=== PATIENT | female | born 1990 | race Caucasian/White ===

== ENCOUNTER 2021-08-29 08:51 | Emergency (ER) | payer BC ==
[2021-08-29 09:26] VITALS: BP 140/90; PULSE 92
== END 2021-08-29 09:34 | disposition home or self-care (01) ==
LOC: MW.ED 08:51
DX: Z00.00 Encounter for general adult medical examination without abnormal findings (principal); Z88.2 Allergy status to sulfonamides
CPT/HCPCS: 99282

== ENCOUNTER 2021-11-06 11:16 | Emergency (ER) | payer BC ==
[2021-11-06 11:34] VITALS: BP 132/74; PULSE 67
[2021-11-06] MEDS ORDERED: Cephalexin 500 MG Cap PO ONE (11:36)
== END 2021-11-06 11:55 | disposition home or self-care (01) ==
LOC: MW.ED 11:16
DX: S61.214A Laceration without foreign body of right ring finger without damage to nail, initial encounter (principal); Z88.2 Allergy status to sulfonamides; W26.8XXA Contact with other sharp object(s), not elsewhere classified, initial encounter
CPT/HCPCS: 99282; A9270

== ENCOUNTER 2022-09-21 06:57 | Emergency (ER) | payer BC ==
[2022-09-21 07:46] VITALS: BP 116/75; PULSE 74
== END 2022-09-21 08:03 | disposition home or self-care (01) ==
LOC: MW.ED 06:57
DX: Z76.0 Encounter for issue of repeat prescription (principal); F17.210 Nicotine dependence, cigarettes, uncomplicated; Z88.2 Allergy status to sulfonamides
CPT/HCPCS: 99281; 99282

== ENCOUNTER 2022-10-28 14:33 | Emergency (ER) | payer BC, MEDICAID ==
[2022-10-28 15:14] VITALS: BP 125/85; PULSE 80
== END 2022-10-28 15:10 | disposition home or self-care (01) ==
LOC: MW.ED 14:33
DX: Z76.0 Encounter for issue of repeat prescription (principal); Z79.899 Other long term (current) drug therapy; Z88.2 Allergy status to sulfonamides
CPT/HCPCS: 99283

== ENCOUNTER 2022-12-01 05:38 | Emergency (ER) | payer MEDICAID ==
[2022-12-01 06:40] VITALS: BP 130/72; PULSE 75
== END 2022-12-01 06:39 | disposition home or self-care (01) ==
LOC: MW.ED 05:38
DX: F32.A Depression, unspecified (principal); Z76.0 Encounter for issue of repeat prescription; Z88.2 Allergy status to sulfonamides
CPT/HCPCS: 99281; 99283

== ENCOUNTER 2023-01-04 01:03 | Emergency (ER) | payer MEDICAID ==
[2023-01-04] MEDS ORDERED: Venlafaxine 37.5 MG Tab PO STA (02:04)
[2023-01-04 02:40] VITALS: BP 140/83; PULSE 83
== END 2023-01-04 02:39 ==
LOC: MW.ED 01:03
DX: Z02.89 Encounter for other administrative examinations (principal); Z88.2 Allergy status to sulfonamides
CPT/HCPCS: 99282; A9270; 99283

== ENCOUNTER 2023-02-10 16:02 | Emergency (ER) | payer MEDICAID ==
[2023-02-10 16:28] VITALS: BP 147/95; PULSE 104
== END 2023-02-10 16:41 | disposition home or self-care (01) ==
LOC: MW.ED 16:02
DX: Z76.0 Encounter for issue of repeat prescription (principal); Z88.2 Allergy status to sulfonamides
CPT/HCPCS: 99281; 99283

== ENCOUNTER 2023-04-14 21:58 | Emergency (ER) | payer MEDICAID ==
[2023-04-14 23:06] VITALS: BP 123/76; PULSE 97
[2023-04-14] MEDS ORDERED: Venlafaxine 37.5 MG Tab PO STA (23:10)
== END 2023-04-14 23:28 | disposition home or self-care (01) ==
LOC: MW.ED 21:58
DX: Z76.0 Encounter for issue of repeat prescription (principal)
CPT/HCPCS: 99281; A9270; 99283

== ENCOUNTER 2023-07-05 02:13 | Emergency (ER) | payer MEDICAID ==
[2023-07-05 02:46] VITALS: BP 126/96; PULSE 88
[2023-07-05] MEDS: cefTRIAXone 500 MG in Lidocaine 1% 1 ML IM ONE (03:00)
[2023-07-05 03:24] LABS: BILIRUBIN,URINE NEGATIVE (NEGATIVE); COLOR,URINE YELLOW; GLUCOSE,URINE NEGATIVE (NEGATIVE); KETONES,URINE NEGATIVE (NEGATIVE); LEUKOCYTE ESTERASE,URINE NEGATIVE (NEGATIVE); NITRITE,URINE NEGATIVE (NEGATIVE); OCCULT BLOOD,URINE MODERATE (NEGATIVE); PH,URINE 6.5 (5.0-8.0); PROTEIN,URINE NEGATIVE (NEGATIVE); UROBILINOGEN,URINE 0.2 EU/dL (<2.0)
[2023-07-05 03:46] LABS: APPEARANCE,URINE HAZY
[2023-07-05 03:50] LABS: BACTERIA,URINE FEW (NEGATIVE); EPITHELIAL CELLS,URINE RARE (NONE-FEW); MUCUS,URINE FEW (NONE-MOD)
[2023-07-05 04:41] LABS: CANDIDA DNA PROBE NEGATIVE (NEGATIVE); GARDNERELLA DNA PROBE POSITIVE (NEGATIVE); TRICHOMONAS DNA PROBE POSITIVE (NEGATIVE)
[2023-07-05 04:54] LABS: C. TRACHOMATIS BY PCR NOT DETECTED; N. GONORRHOEAE BY PCR NOT DETECTED
== END 2023-07-05 04:02 | disposition home or self-care (01) ==
LOC: MW.ED 02:13
DX: A59.01 Trichomonal vulvovaginitis (principal); Z88.2 Allergy status to sulfonamides; Z79.899 Other long term (current) drug therapy; Z75.8 Other problems related to medical facilities and other health care
CPT/HCPCS: 36415; 81001; 81025; 86592; 87389; 87480; 87491; 87510; 87591; 87660; 96372; 99283; J0696; J3490